=== PATIENT | male | born 1990 | race Caucasian/White ===

== ENCOUNTER 2020-06-25 17:04 | Emergency (ER) | payer SELFPAY ==
[~2020-06-25] VITALS: Ht 170.2 cm; Wt 63.6 kg
[2020-06-25 17:14] VITALS: BP 143/93
--- NOTE | 2020-06-25 17:52 | NUR ---
pt cleaned, stapled, and bandaged
== END 2020-06-25 18:27 | disposition home or self-care (01) ==
LOC: ER 17:05
DX: S01.01XA Laceration without foreign body of scalp, initial encounter (principal); W22.8XXA Striking against or struck by other objects, initial encounter; Y93.89 Activity, other specified; Y92.89 Other specified places as the place of occurrence of the external cause; Y99.8 Other external cause status
CPT/HCPCS: 12002; 70450; 99284